=== PATIENT | female | born 1965 | race Hispanic/Latino ===

== ENCOUNTER 2018-01-28 15:55 | Inpatient (IN) | payer MEDICAID, OTHER ==
--- NOTE | 2018-01-28 16:41 | C.PDOC ---
History Of Present Illness 52 y/o female with history of Heroin abuse presents to ED requesting detox from heroin. Patient reports last used yesterday and denies any somatic complaints at this time. Time Seen by Provider: 01/28/18 16:22 Chief Complaint (Nursing): Substance Abuse History Per: Patient History/Exam Limitations: no limitations Onset/Duration Of Symptoms: Days Current Symptoms Are (Timing): Still Present Suicide/Self Injury Attempted (Context): None Modifying Factor(s): Alcohol Past Medical History Reviewed: Historical Data, Nursing Documentation, Vital Signs Vital Signs: Last Vital Signs Temp 98.1 F 01/28/18 16:08 Pulse 74 01/28/18 16:08 Resp 17 01/28/18 16:08 BP 135/84 01/28/18 16:08 Pulse Ox 97 01/28/18 17:36 - Medical History PMH: Back Problems, Seizures Surgical History: Cholecystectomy Family History: States: No Known Family Hx - Social History Hx Alcohol Use: No Hx Substance Use: Yes - Immunization History Hx Tetanus Toxoid Vaccination: (unk) Hx Influenza Vaccination: No Hx Pneumococcal Vaccination: No Review Of Systems Except As Marked, All Systems Reviewed And Found Negative. Constitutional: Negative for: Fever, Chills Cardiovascular: Negative for: Chest Pain Respiratory: Negative for: Cough, Shortness of Breath, Hemoptysis, SOB with Excertion, Wheezing Gastrointestinal: Negative for: Nausea, Vomiting, Abdominal Pain, Diarrhea, Constipation Genitourinary: Negative for: Dysuria Neurological: Negative for: Weakness, Numbness Psych: Negative for: Anxiety, Depression, Suicidal ideation, Withdrawal Physical Exam - Physical Exam Appears: Well, Non-toxic, No Acute Distress Skin: Warm, Dry, No Rash Head: Atraumatic, Normacephalic Eye(s): bilateral: Normal Inspection, PERRL, EOMI Oral Mucosa: Moist Neck: Normal ROM, Supple Cardiovascular: Rhythm Regular Respiratory: Normal Breath Sounds, No Rales, No Rhonchi, No Wheezing Gastrointestinal/Abdominal: Soft, No Tenderness, No Guarding, No Rebound Extremity: Normal ROM, Capillary Refill (<2 seconds) Neurological/Psych: Oriented x3, Normal Speech, Normal Cognition Gait: Steady ED Course And Treatment - Laboratory Results Result Diagrams: 01/28/18 16:40 01/28/18 16:40 O2 Sat by Pulse Oximetry: 97 (RA) Pulse Ox Interpretation: Normal Medical Decision Making Medical Decision Making: Patient pre screened for detox bed. Pending Medical clearance. 5:35PM EKG shows NSR at 71bpm with LAD. Cxray negative. Labs reviewed. Patinet medically cleared for detox. 7:16PM Patient accepted by Dr. Laird Disposition - Disposition Disposition: HOSPITALIZED Disposition Time: 17:35 Condition: FAIR Forms: [facility] ([place]uan) - Clinical Impression Clinical Impression: Heroin abuse - Scribe Statement The provider has reviewed the documentation as recorded by the Scribsonia Price All medical record entries made by the Genetibe were at my direction and personally dictated by me. I have reviewed the chart and agree that the record accurately reflects my personal performance of the history, physical exam, medical decision making, and the department course for this patient. I have also personally directed, reviewed, and agree with the discharge instructions and disposition.
[2018-01-28 16:48] LABS: BASO % 0.3 % (0.0-2.0); HEMOGLOBIN 14.2 g/dL (11.0-16.0); LYMPH # 1.7 K/uL (1.0-4.3); LYMPH % 34.1 % (20.0-40.0); MEAN CELL VOLUME 90.9 fL (81.0-99.0); MEAN CORPUSCULAR HEMOGLOBIN 31.6 pg (27.0-31.0); MEAN CORPUSCULAR HGB CONC 34.8 g/dL (33.0-37.0); MEAN PLATELET VOLUME 7.5 fL (7.2-11.7); MONO # 0.3 K/uL (0.0-0.8); NEUT % 59.6 % (50.0-75.0); NRBC % 0.1 % (0.0-2.0); RBC 4.48 Mil/uL (3.80-5.20); RED CELL DISTRIBUTION WIDTH 13.7 % (11.5-14.5)
--- NOTE | 2018-01-28 16:54 | RAD ---
HISTORY: detox COMPARISON: No prior. FINDINGS: LUNGS: No active pulmonary disease. PLEURA: No significant pleural effusion identified, no pneumothorax apparent. CARDIOVASCULAR: Normal. OSSEOUS STRUCTURES: No significant abnormalities. VISUALIZED UPPER ABDOMEN: Normal. OTHER FINDINGS: None. IMPRESSION: No active disease.
[2018-01-28 17:00] LABS: SQUAMOUS EPITHIAL 1 /hpf (0-5); URINE BILIRUBIN NEGATIVE (NEGATIVE); URINE BLOOD NEGATIVE (NEGATIVE); URINE CLARITY Clear (Clear); URINE GLUCOSE (UA) NORMAL (Normal); URINE LEUKOCYTE ESTERASE NEG Leu/uL (Negative); URINE PROTEIN NEGATIVE (NEGATIVE)
[2018-01-28 17:01] LABS: URINE COLOR YELLOW (YELLOW)
[2018-01-28 17:03] LABS: ALB/GLOB RATIO 1.3 (1.0-2.1); ALBUMIN 4.8 g/dL (3.5-5.0); ALT/SGPT 35 U/L (9-52); AST/SGOT 53 U/L (14-36); BLOOD UREA NITROGEN 19 mg/dL (7-17); GFR AFRICAN-AMERICAN > 60; GFR NON-AFRICAN AMERICAN > 60
[2018-01-28 17:15] LABS: BARBITURATES, UR NEGATIVE (NEGATIVE); PHENCYCLIDINE, UR NEGATIVE (NEGATIVE)
[2018-01-28 17:22] LABS: BENZODIAZEPINES, UR POSITIVE (NEGATIVE); OPIATES, UR POSITIVE (NEGATIVE)
--- NOTE | 2018-01-28 19:42 | PCM.BM ---
<Earnestine Cruz - Last Filed: 01/28/18 19:41> Treatment Plan Problems - Problems identified on initial assessmt potiential for opiate withdrawal Date Initiated: 01/28/18 Time Initiated: 19:42 Assessment reference: NA Status: Active Treatment assets and liabiliti Patient Assests: ADL independent, cognitively intact Patient Liabilities: substance abuse, medical problems - Milieu Protocol Maintain good personal hygiene: daily Encourage regular showers, daily Remind patient to perform daily oral care, daily Assist patient to perform ADL's Maintain personal safety: every shift Educate patient to report safety concerns to staff, every shift Monitor environment for contraband/sharps Medication safety: Monitor for expected outcome, potential side effects: every shift, Assess barriers to learning: every shift, Assess readiness for medication education: every shift <Araceli De Leon - Last Filed: 02/01/18 06:23> - Diagnosis (1) Opioid use disorder, severe, dependence Status: Acute Interventions: 02/01/18 06:23 * Assess 7x/week regarding severity of withdrawal * Educate regarding risks, benefits, side effects and alternatives of medications * Use Motivational Interviewing for abstinence * Use CBT for relapse prevention * Medication management for withdrawal symptoms * Encourage medication assisted treatment *
[2018-01-28] MEDS ORDERED: Aluminum Hydroxide/Magnesium Hydroxide Susp (30 mL) PO PRN (23:06)
--- NOTE | 2018-01-29 12:12 | PCM.RRT ---
WASH CREW PERSON Nurses Assessment - Situation Date: 01/29/18 WASH CREW PERSON Location:: Med/Detox Room Number: 761B I.Reason for WASH CREW PERSON - A) Acute Change in Patient: (Select all that apply): Acute change in heart rate less than 50 or greater than 120 Subjective: Rapid response was called by RN for bradycardia (36) while checking vitals. On arrival patient had a HR of 42 bpm. Patient was asymptomatic. Patient says she has a history of low resting heart rate. Manual HR was done and found to be 48. Nurse was told to monitor vitals and manually recheck HR at the next vital check and to page if there was any change in patient status. - Constitutional Appears: Non-toxic, No Acute Distress - Head Head Exam: ATRAUMATIC, NORMAL INSPECTION, NORMOCEPHALIC - Eyes Eye Exam: EOMI - Respiratory Exam Respiratory Exam: Clear to Ausculation Bilateral, NORMAL BREATHING PATTERN. absent: Rales, Rhonchi, Wheezes - Cardiovascular Exam Cardiovascular Exam: Bradycardia, REGULAR RHYTHM, +S1, +S2 - Neurological Exam Neurological Exam: Alert, Awake, Oriented x3 - Extremities Exam Extremities Exam: Normal Inspection Plan - Assessment of Findings&Treatment Plan See above.
--- NOTE | 2018-01-29 13:04 | PCM.PSYCH ---
Initial Psychiatric Evaluation - Initial Psychiatric Evaluation Type of Admission: Voluntary Legal Status: Capacity Chief Complaint (in patient's own words): "I need help" History of Present Illness and Precipitating Events: The patient is seen, chart reviewed and case discussed. This is a 52-year-old female, single with 3 children aged 30, 25-year- old twins, and she lives with her girlfriend, on SSI because of psychiatric conditions. The patient admits to using 10 "[place] bags" which she describes as bigger than [place] backs, intravenously. She says she started in her teens and used on and off until now. This relapse happened 2 years ago. She denies any painkiller use. She was on methadone for 20 years at [facility] up to 100 mg per day, which she quit in 2012. The patient also uses Xanax 1 mg twice a day for "many years" and she doesn't want to stop that. She denies using alcohol or drugs but smokes marijuana rarely , and cigarettes 1 pack per day. This is her second detox and she has never been to rehabilitation. Past psych history: The patient has an extensive psychiatric history but unclear diagnosis. She was hospitalized 4 or 5 times, no suicide attempts, however she claims she was psychotic at one point and even hospitalized involuntarily around 2012. She doesn't know what caused it. Currently, she feels better and she denies suicidal ideation, hallucinations or delusions. Family psych history: She claims they all have psychiatric and substance abuse problems. Medical history: Hepatitis C, seizure disorder but last one was 7 months ago. Current Medications: Active Medications Generic Name Dose Route Start Last Admin Trade Name Freq PRN Reason Stop Dose Admin Al Hydrox/Mg Hydrox/Simethicone 30 ml 01/28/18 23:06 Maalox 30 Ml PO TID PRN Indigestion / Heartburn Clonazepam 1 mg 01/29/18 13:01 Klonopin PO BID PETE Clonidine HCl 0.1 mg 01/28/18 23:06 Catapres PO Q8 PRN COWS Score More or Equal to 5 Hydroxyzine HCl 25 mg 01/28/18 20:41 01/29/18 06:58 Atarax PO 25 mg Q8 PRN Administration Anxiety Ibuprofen 600 mg 01/28/18 20:40 Motrin Tab PO Q8 PRN Pain, moderate (4-7) Loperamide HCl 2 mg 04/19/18 23:06 Imodium PO Q8 PRN Diarrhea Methadone HCl 20 mg 01/29/18 10:00 01/29/18 11:56 Methadone PO 02/03/18 09:59 15 mg Q24H PETE Administration Taper Methadone HCl 0 mg 01/30/18 10:00 Methadone PO 02/03/18 09:59 Q24H PETE Taper Ondansetron HCl 4 mg 01/28/18 23:06 01/29/18 11:14 Zofran Tab PO 4 mg Q8 PRN Administration Nausea/Vomiting Trazodone HCl 50 mg 01/28/18 20:40 Desyrel PO HS PRN Insomnia Past Psychiatric History - Past Psychiatric History Previous Treatment History: Inpatient Pertinent Medical Hx (Current Medical&Sleep Prob, Allergies): Allergies Allergy/AdvReac Type Severity Reaction Status Date / Time No Known Allergies Allergy Unverified 01/28/18 16:12 ALPRAZolam [Xanax] 1 tab PO BID 01/28/18 Review of Systems - Neurological Neurological: UNREMARKABLE - Psychiatric Psychiatric: Abnormal Sleep Pattern, Anxiety, Difficulty Concentrating, Irritability. absent: Depression, Hallucinations, Homicidal Ideation, Hopelessness, Paranoia, Suicidal Ideation Mental Status Examination - Personal Presentation Personal Presentation: Looks stated age (Slightly odd and evasive, unkempt) - Affect Affect: Constricted - Motor Activity Motor Activity: Calm - Reliability in Providing Information Reliability in Providing Information: Fair - Speech Speech: Organized - Mood Mood: Anxious - Formal Thought Process Formal Thought Process: No Impairment - Cognitive Functions Orientation: Person, Place, Situation, Time Sensorium: Alert Attention/Concentration: Easily distracted Abstract Thinking: [place] Estimate of Intelligence: Average Judgement: Intact, as evidence by: Insight regarding need for hospitalization Memory: Recent intact, as evidence by: Ability to recall events of the day, Remote impaired as evidenced by: Inability to recall sig life events - Risk Risk: Withdrawal, Diminished functioning - Strength & Assets Inventory Strength & Assets Inventory: Cooperative - Limitations Limitations: Other DSM 5 DX - DSM 5 DSM 5 Diagnosis: Opioid use disorder, severe Opioid withdrawal Anxiety disorder, unspecified Rule out bipolar disorder unspecified Personality disorder unspecified Tobacco use disorder, severe Cannabis use disorder, mild - Recommended/Plan of Treatment Treatment Recommendations and Plan of Treatment: Taper with methadone, carefully. Medicine consulted after her pulse dropped which she claims always happens when she is withdrawing. Medicine cleared methadone and Klonopin use. Klonopin will replace Xanax Gabapentin for augmentation if needed As needed medications All risks, benefits and alternatives of the meds discussed, and the pt agreed and understood. Attend groups and activities Supportive therapy and psychoeducation [place] for abstinence CBT for relapse prevention Encourage MAT Refer to rehab or IOP, and self-help groups Smoking cessation with [place] Nicotine patch if needed 34 min Projected ELOS: 5-6 days Prognosis: Good with treatment - Smoking Cessation Smoking Cessation Initiated: Yes
[2018-01-31] MEDS: Multiple Vitamins Tab PO SCH (13:51)
--- NOTE | 2018-01-31 21:30 | PCM.PYCHPN ---
Psychiatric Progress Note - Psychiatric Progress Note Patient seen today, length of contact: 17 min Patient Chief Complaint: "I'm not well" Problems Identified/Issues Discussed: The pt is seen, chart reviewed, case discussed with staff. The pt is compliant with medications and reports no side-effects. Symptoms are improving but needs more time to stabilize. After care discussed, support and psychoeducation given. Medication Change: Yes (detox changes daily) Mental Status Examination - Cognitive Function Orientation: Person, Place, Situation, Time Memory: Intact Attention: Poor Concentration: Poor Association: WNL Fund of Knowledge: WNL - Mood Mood: Anxious - Affect Affect: Constricted - Speech Speech: Appropriate - Formal Thought Process Formal Thought Process: No Impairment - Suicidal Ideation Suicidal Ideation: No - Homicidal Ideation Homicidal Ideation: No Goal/Treatment Plan - Goal/Treatment Plan Need for Continued Stay: Discharge may exacerbated symptoms, Severe functional impairment Progress Toward Problem(s) and Goals/Treatment Plan: Taper with methadone, carefully. Medicine consulted after her pulse dropped which she claims always happens when she is withdrawing. Medicine cleared methadone and Klonopin use. Klonopin will replace Xanax Gabapentin for augmentation if needed As needed medications All risks, benefits and alternatives of the meds discussed, and the pt agreed and understood. Attend groups and activities Supportive therapy and psychoeducation [place] for abstinence CBT for relapse prevention Encourage MAT Refer to rehab or IOP, and self-help groups Smoking cessation with [place] Nicotine patch if needed
--- NOTE | 2018-02-01 06:24 | PCM.PYCHPN ---
Psychiatric Progress Note - Psychiatric Progress Note Patient seen today, length of contact: 16 min Patient Chief Complaint: "I'm better" Problems Identified/Issues Discussed: The pt is seen, chart reviewed, case discussed with staff. Support given, CBT and OR used briefly No new symptoms reported, improving slowly and needs more time No SEs from medications, risks discussed. After care discussed BP is better Medication Change: Yes (detox changes daily) Medical Record Reviewed: Yes Mental Status Examination - Cognitive Function Orientation: Person, Place, Situation, Time Memory: Intact Attention: Poor Concentration: Poor Association: WNL Fund of Knowledge: WNL - Mood Mood: Anxious - Affect Affect: Constricted - Speech Speech: Appropriate - Formal Thought Process Formal Thought Process: No Impairment - Suicidal Ideation Suicidal Ideation: No - Homicidal Ideation Homicidal Ideation: No Goal/Treatment Plan - Goal/Treatment Plan Need for Continued Stay: Discharge may exacerbated symptoms, Severe functional impairment Progress Toward Problem(s) and Goals/Treatment Plan: Taper with methadone, carefully. Medicine consulted after her pulse dropped which she claims always happens when she is withdrawing. Medicine cleared methadone and Klonopin use. Klonopin will replace Xanax Gabapentin for augmentation if needed As needed medications All risks, benefits and alternatives of the meds discussed, and the pt agreed and understood. Attend groups and activities Supportive therapy and psychoeducation [place] for abstinence CBT for relapse prevention Encourage MAT Refer to rehab or IOP, and self-help groups Smoking cessation with [place] Nicotine patch if needed
--- NOTE | 2018-02-01 08:48 | PCM.PYCHDC ---
Mental Status Examination - Mental Status Examination Orientation: Person, Place, Situation, Time Memory: Intact Mood: Anxious Affect: Constricted Speech: Appropriate Attention: WNL Concentration: Poor Association: WNL Fund of Knowledge: WNL Formal Thought Process: No Impairment Suicidal Ideation: No Current Homicidal Ideation?: No Discharge Summary - Discharge Note Consultations:: List each consultation separately and include: 1. Reason for request. 2. Findings. 3. Follow-up Summary of Hospital Course include:: 1. Description of specific treatment plan utilized for patients during their course of treatmen. 2. Summarize the time- course for resolution of acute symptoms and/or regressed behaviors. 3. Describe issues identified and worked on during hospitalization. 4. Describe medication utilized. 5. Describe medical problems identified and treated. 6. Reassessment of suicide risk Summary of Hospital Course: The patient is seen, chart reviewed and case discussed. On admission: This is a 52-year-old female, single with 3 children aged 30, 25-year- old twins, and she lives with her girlfriend, on SSI because of psychiatric conditions. The patient admits to using 10 "[place] bags" which she describes as bigger than [employer] backs, intravenously. She says she started in her teens and used on and off until now. This relapse happened 2 years ago. She denies any painkiller use. She was on methadone for 20 years at [facility] up to 100 mg per day, which she quit in 2012. The patient also uses Xanax 1 mg twice a day for "many years" and she doesn't want to stop that. She denies using alcohol or drugs but smokes marijuana rarely , and cigarettes 1 pack per day. This is her second detox and she has never been to rehabilitation. Past psych history: The patient has an extensive psychiatric history but unclear diagnosis. She was hospitalized 4 or 5 times, no suicide attempts, however she claims she was psychotic at one point and even hospitalized involuntarily around 2012. She doesn't know what caused it. Currently, she feels better and she denies suicidal ideation, hallucinations or delusions. Family psych history: She claims they all have psychiatric and substance abuse problems. Medical history: Hepatitis C, seizure disorder but last one was 7 months ago. Hospital course: The pt was admitted and started on treatment with psychotherapy, support, psychoeducation and medications. [place] and CBT used. The pt attended groups and activities, as well as milieu therapy. All the risks and benefits of medications are discussed and the patient understood and agreed. The pt improved with the treatments provided. She had a rapid b/c of EKG showing 36 HR - cleared. She always had very low BP and P She was given klonopin but she wants to continue w Xanax outside risks discussed After care discussed with the patient. She will attend [facility]. - Final Diagnosis (DSM 5) Condition upon Discharge: IMPROVED DSM 5: Opioid use disorder, severe Opioid withdrawal Anxiety disorder, unspecified Rule out bipolar disorder unspecified Personality disorder unspecified Tobacco use disorder, severe Cannabis use disorder, mild Disposition: HOME/ ROUTINE Follow-up Treatment Plan: Continue below medications after discharge. Follow after care plan as discussed. Use relapse prevention skills Return to ER or call 911 if suicidal, homicidal or symptoms relapse. Stay away from stress, alcohol and drugs. See primary doctor regularly and get labs. Prescriptions/Medication Reconciliation: Cyclobenzaprine [Flexeril] 5 mg PO BID #60 tab - Smoking Cessation Smoking Cessation Medication prescribed: No - Antipsychotic Medications Pt discharged on 2 or more routine antipsychotic medications: No
[2018-02-01] MEDS: Multiple Vitamins Tab PO SCH (09:26)
[2018-02-01 10:03] VITALS: BP 137/75; PULSE 51; RESP 20; TEMP 99; O2SAT 99
--- NOTE | 2018-02-02 22:54 | CARD ---
APPROVED REPORT EKG Measurement Heart [id number] <Conclusion> Marked sinus bradycardia Left axis deviation Abnormal ECG
== END 2018-02-01 09:45 | disposition home or self-care (01) | DRG 744 ==
LOC: C.ER 15:55 → C.7D 19:13
PROVIDERS: ADMIT Psychiatry & Neurology Psychiatry; ATTEND Psychiatry & Neurology Psychiatry
PROC: HZ2ZZZZ Detoxification Services for Substance Abuse Treatment (ICD-10-PCS; principal; 2018-01-28)
PROC: HZ59ZZZ Individual Psychotherapy for Substance Abuse Treatment, Supportive (ICD-10-PCS; 2018-01-28)
PROC: HZ46ZZZ Group Counseling for Substance Abuse Treatment, Psychoeducation (ICD-10-PCS; 2018-01-28)
PROC: GZ3ZZZZ Medication Management (ICD-10-PCS; 2018-01-28)
PROC: HZ90ZZZ Pharmacotherapy for Substance Abuse Treatment, Nicotine Replacement (ICD-10-PCS; 2018-01-28)
DX: F11.23 Opioid dependence with withdrawal (principal); F12.10 Cannabis abuse, uncomplicated; F41.9 Anxiety disorder, unspecified; F60.9 Personality disorder, unspecified; F17.210 Nicotine dependence, cigarettes, uncomplicated; R00.1 Bradycardia, unspecified; B18.2 Chronic viral hepatitis C; G40.909 Epilepsy, unspecified, not intractable, without status epilepticus